=== PATIENT | female | born 1990 | race Caucasian/White ===

== ENCOUNTER 2019-01-10 17:59 | Emergency (ER) | payer OTHER ==
[~2019-01-10] VITALS: Ht 160 cm; Wt 89.1 kg
[2019-01-10 18:02] VITALS: Ht 160 cm; Wt 89.1 kg
[2019-01-10 18:35] VITALS: BP 149/89
== END 2019-01-10 18:35 | disposition home or self-care (01) ==
LOC: ED 17:59
DX: K08.89 Other specified disorders of teeth and supporting structures (principal)
CPT/HCPCS: Q0162